=== PATIENT | male | born 1960 | race Caucasian/White ===

== ENCOUNTER 2018-09-17 09:51 | Inpatient (IN) ==
[2018-09-17] MEDS ORDERED: ONDANSETRON INJ 2 MG/ML 2 ML VIAL IV STA (10:40)
[2018-09-17] MEDS ORDERED: SODIUM CHLORIDE 0.9% 1000ML 1,000 ML IV ONE (10:40)
[2018-09-17] MEDS ORDERED: MoRPHine SULFATE 4 MG/ML 1 ML CARP\\VIAL IV STA (10:40)
[2018-09-17 10:46] LABS: White Blood Count 8.58 K/uL (4.8-10.8)
[2018-09-17 10:47] LABS: Hematocrit (blood only) 38.6 % (42-52); Hemoglobin 13.5 g/dL (14.0-18.0); Mean Corpuscular Volume 83.4 fL (80-100); Mean Platelet Volume 9.6 fL (7.4-10.4); Platelet Count 142 K/uL (130-400); RDW Coefficient of Variation 14.5 % (11.5-14.5); RDW Standard Deviation 44.6 fL (36.4-46.3); Red Blood Count 4.63 M/uL (4.7-6.1)
[2018-09-17 10:54] LABS: Calcium 8.8 mg/dl (8.5-10.1); Creatinine Clr Calc Pharmacy 88.6 ml/min; Est GFR (African American) 88.8; Est GFR (Non-African American) 76.7; Potassium 4.2 mmol/L (3.5-5.1)
[2018-09-17 10:57] LABS: Albumin Globulin Ratio 1.3 (0.9-2); Bilirubin,Total 0.6 mg/dl (0.2-1); Globulin 3.1 gm/dl (2.5-4.0); Total Protein 7.1 gm/dl (6.4-8.2)
[2018-09-17 11:13] LABS: Basophils # (auto) 0.01 K/uL (0-0.2); Basophils % (auto) 0.1 %; Eosinophils # (auto) 0.06 K/uL (0-0.5); Eosinophils % (auto) 0.7 %; Immature Granulocytes # (auto) 0.02 K/uL (0.00-0.02); Immature Granulocytes % (auto) 0.2 %; Lymphocytes # (auto) 1.01 K/uL (1.2-3.4); Lymphocytes % (auto) 11.8 %; Monocytes # (auto) 0.61 K/uL (0.11-0.59); Monocytes % (auto) 7.1 %; Neutrophils # (auto) 6.87 K/uL (1.4-6.5); Neutrophils % (auto) 80.1 %
[2018-09-17] MEDS ORDERED: IOVERSOL 100ml IV PRN (11:22)
--- NOTE | 2018-09-17 12:07 | CT Scan Report ---
ABDOMEN AND PELVIS CT WITH IV CONTRAST CT DOSE: 532.06 mGy.cm HISTORY: trauma, rt flank hematoma TECHNIQUE: Multiaxial CT images of the abdomen and pelvis were performed following the use of intrave nous contrast. A dose lowering technique was utilized adhering to the principles of ALARA. COMPARISON STUDY: None. FINDINGS: The lung bases are clear. No pneumoperitoneum. No pneumatosis. Right L2-L4 transverse proce ss fractures. The L3 and L4 fractures are mildly displaced. Moderate to severe degenerative disc dise ase within the lumbar spine. There is a 12 x 5 cm hematoma within the deep subcutaneous fat of the ri ght flank. This measures 13 cm in length. There is also additional superficial subcutaneous hemorrhag e within the right lateral abdominal wall which extends to the subcutaneous lumbosacral region. There is also a small amount of inter and intramuscular hemorrhage/edema within the right lateral abdomina l wall musculature. No definite retroperitoneal hemorrhage identified. A few colonic diverticula. No evidence for diverticulitis. No bowel wall thickening or obstruction. Normal appendix. The liver, gal lbladder, spleen, adrenal glands and pancreas are within normal limits. No hydronephrosis. There are few small bilateral peripelvic renal cysts. A 6 mm hypodense lesion within the left kidney is technic ally too small to characterize but favors a cyst. No retroperitoneal lymphadenopathy. Normal bladder. IMPRESSION: 1. Right L2-L4 transverse process fractures. 2. A 13 x 12 x 5 cm hematoma within the deep subcutaneous fat of the right flank. 3. There is additional superficial subcutaneous hemorrhage within the right lateral abdominal wall wh ich extends to the subcutaneous lumbosacral region as well as a small amount of inter and intramuscul ar hemorrhage/edema within the right lateral abdominal wall musculature. Electronically signed by: Richard De La Rosa M.D. 09/17/2018 12:05 PM
[2018-09-17] MEDS ORDERED: MoRPHine SULFATE 2 MG/ML CARP IV STA (13:12)
--- NOTE | 2018-09-17 14:52 | History & Physical Report ---
Date of Service September 17, 2018 Assessment & Plan (1) Intramuscular hematoma: -Admit to [facility] -Patient presenting from home after suffering a 4 foot fall yesterday onto a piece of swimming pool railing -in the ED, found to have L2-L4 transverse process fracture with significant hematoma of the right flank -Hgb stable at 13.5, will continue to trend -will discuss with orthopedics regarding follow-up -Pain management with scheduled Tylenol and as needed oxycodone for breakthrough pain (2) Lumbar transverse process fracture: -L2-L4 transverse process fracture -Spine orthopedics consult -Pain management as above (3) DVT prophylaxis: -SCDs due to significant hematoma History of Present Illness Chief Complaint: Fall, back pain Primary Care Provider: Nivia Quezada MD 58-year-old male who presents the ED with back pain after he suffered a fall yesterday. Patient reports he was working on a deck around his pool, when he slipped and fell backwards falling onto a metal railing. He reports his fall was about 4 feet. Patient denies striking his head or having loss of consciousness. Patient reports that he was initially able to get up and walk, however pain has been progressively getting worse to the point where he had a called EMS this morning. Bruising in the right flank area has been progressively worsening as well. He denies numbness and tingling to lower extremities. Denies any loss of bowel or bladder function. Reports he otherwise been feeling well recently. No chest pain or shortness of breath. He denies lightheadedness, dizziness, diaphoresis, syncopal events. No abdominal pain, nausea, vomiting, diarrhea. He denies any urinary symptoms. In the ED, CT ABD/pelvis is showing right L2-L4 transverse process fractures and a 13 x 12 x 5 cm hematoma within the deep subcutaneous fat of the right flank. Hgb 13.5. Patient has remained hemodynamically stable. He was given IVF, IV Zofran, IV morphine x2 doses. Allergies Allergy/AdvReac Type Severity Reaction Status Date / Time No Known Allergies Allergy Unverified 09/17/18 10:45 Home Medications Home Medications Medication Instructions Recorded Confirmed Type No Known Home Medications 09/17/18 09/17/18 History Past Med/Surg History Medical History No pertinent past medical history (Chronic) No significant past surgical history (Chronic) Family History Sister Chelsea chorea Social History marital status: Single Current Living Situation: Alone current occupational status: employed Feels Safe at Home: Yes Smoking Status: Former smoker Hx Alcohol Use: Yes Alcohol type: beer Review of Systems Review of Systems: ROS per HPI, all other systems reviewed and negative Physical Exam Constitutional: WD/WN, vitals as above Eyes: PERRL, conjunctivae normal, anicteric sclerae ENMT: external ear and nose normal, oropharynx normal Respiratory: normal respiratory effort, lungs clear to auscultation Cardiovascular: Rate/Rhythm: regular rate and regular rhythm Vessels: normal peripheral pulses Extremities: no edema Gastrointestinal (Abdomen): normal bowel sounds, soft, nontender, no hepatosplenomegaly Musculoskeletal: no cyanosis or clubbing, extremities motor strength 5/5 Extensive ecchymosis noted over right flank, edematous/firm to touch Skin: no rashes, warm and dry Neurologic: PERRL, EOMI, accommodation nl, no face palsy, no dysarthria Psychiatric: A+Ox3, euthymic affect Results & Data Vital Signs (Past 12 Hours) Vital Signs Temp Pulse Pulse Resp BP BP Pulse Ox 09/17/18 14:34 94 H 16 140/94 98 09/17/18 13:03 95 H 16 179/85 H 100 09/17/18 11:43 76 16 154/99 H 98 09/17/18 09:58 36.5 C 92 H 16 126/72 97 Laboratory Results Laboratory Last Values WBC 8.58 K/uL (4.8-10.8) 09/17/18 09:54 RBC 4.63 M/uL (4.7-6.1) L 09/17/18 09:54 Hgb 13.5 g/dL (14.0-18.0) L 09/17/18 09:54 Hct 38.6 % (42-52) L 09/17/18 09:54 MCV 83.4 fL (80-100) 09/17/18 09:54 MCH 29.2 pg (25-34) 09/17/18 09:54 MCHC 35.0 g/dL (32-36) 09/17/18 09:54 RDW Std Deviation 44.6 fL (36.4-46.3) 09/17/18 09:54 RDW Coeff of Netta 14.5 % (11.5-14.5) 09/17/18 09:54 Plt Count 142 K/uL (130-400) 09/17/18 09:54 MPV 9.6 fL (7.4-10.4) 09/17/18 09:54 Immature Gran % (Auto) 0.2 % 09/17/18 09:54 Neut % (Auto) 80.1 % 09/17/18 09:54 Lymph % (Auto) 11.8 % 09/17/18 09:54 [place] % (Auto) 7.1 % 09/17/18 09:54 Eos % (Auto) 0.7 % 09/17/18 09:54 Baso % (Auto) 0.1 % 09/17/18 09:54 Immature Gran # (Auto) 0.02 K/uL (0.00-0.02) 09/17/18 09:54 Neut # (Auto) 6.87 K/uL (1.4-6.5) H 09/17/18 09:54 Lymph # (Auto) 1.01 K/uL (1.2-3.4) L 09/17/18 09:54 [place] # (Auto) 0.61 K/uL (0.11-0.59) H 09/17/18 09:54 Eos # (Auto) 0.06 K/uL (0-0.5) 09/17/18 09:54 Baso # (Auto) 0.01 K/uL (0-0.2) 09/17/18 09:54 Sodium 138 mmol/L (136-145) 09/17/18 09:54 Potassium 4.2 mmol/L (3.5-5.1) 09/17/18 09:54 Chloride 105 mmol/L (98-107) 09/17/18 09:54 Carbon Dioxide 29 mmol/L (21-32) 09/17/18 09:54 4.0 (3-11) 09/17/18 09:54 BUN 14 mg/dl (7-18) 09/17/18 09:54 1.07 mg/dl (0.6-1.4) 09/17/18 09:54 Est Cr Clr Drug Dosing 88.6 ml/min 09/17/18 09:54 Est GFR ( Amer) 88.8 09/17/18 09:54 Est GFR (Non-Af Amer) 76.7 09/17/18 09:54 13.0 (10-20) 09/17/18 09:54 Glucose 120 mg/dl (70-99) H 09/17/18 09:54 Calcium 8.8 mg/dl (8.5-10.1) 09/17/18 09:54 0.6 mg/dl (0.2-1) 09/17/18 09:54 AST 18 U/L (15-37) 09/17/18 09:54 ALT 40 U/L (12-78) 09/17/18 09:54 61 U/L (45-117) 09/17/18 09:54 7.1 gm/dl (6.4-8.2) 09/17/18 09:54 4.0 gm/dl (3.4-5.0) 09/17/18 09:54 3.1 gm/dl (2.5-4.0) 09/17/18 09:54 1.3 (0.9-2) 09/17/18 09:54 120 U/L (73-393) 09/17/18 09:[address] ABD/PELVIS IMPRESSION: 1. Right L2-L4 transverse process fractures. 2. A 13 x 12 x 5 cm hematoma within the deep subcutaneous fat of the right flank. 3. There is additional superficial subcutaneous hemorrhage within the right lateral abdominal wall which extends to the subcutaneous lumbosacral region as well as a small amount of inter and intramuscular hemorrhage/edema within the right lateral abdominal wall musculature. Code Status & VTE Plan VTE Prophylaxis Plan VTE Prophylaxis will be ordered: Yes Supervising Physician Co-Signing Physician Notes Patient is a 58-year-old male with no significant past medical history presents with back/right flank pain, ambulatory dysfunction after having a mechanical fall yesterday. Patient denies any loss of consciousness, head trauma. He also denies any numbness, tingling in his feet, weakness, bowel or bladder inco ntinence. Patient has significant pain with ambulation, movement. Pain decreases with rest-2/10 at rest and 4-5/10 with activity. Please review HPI for complete details of presentation. CT abdomen showed right L2- L4 transverse process fractures, large hematoma within the deep subcutaneous fat of the right flank, superficial subcutaneous hemorrhages within the right lateral abdominal wall. On exam patient is well-built and nourished, no apparent distress, normocephalic atraumatic, lungs are clear to auscultation, S1-S2, no murmur, large ecchymosis noted on the right flank region, tender, decreased ROM of lumbar region secondary to pain. No pedal edema. Patient is admitted for monitoring of intramuscular hematoma, dysfunction plan for management for lumbar transverse process fracture. Orthopedics is consulted. Will get PT OT in the morning once recommendations noted from orthopedics. Monitor H&H. May need repeat imaging to monitor the progression of the hematoma. Will likely need to back brace for ambulation. Will control pain with medications. Fall precautions. Will discuss with Ortho if hematoma/Transverse fractures needs any surgical intervention. I personally reviewed the record. Patient is interviewed and examined at bedside. Patient's care is coordinated with Cecy Schrader [employer] CLE[employer] SUPERVISOR. Please refer to the documentation above for details of patient's presentation and for discussion of other issues.
[2018-09-17] MEDS: ACETAMINOPHEN 325 MG TAB PO SCH ×2 (16:22→21:39)
[2018-09-17] MEDS: OXYCODONE HCL IR 5 MG TAB (IMMEDIATE RELEASE) PO PRN ×2 (16:23→20:37)
[2018-09-17] MEDS: DOCUSATE SODIUM 100 MG CAP PO SCH (20:37)
[2018-09-17 20:53] LABS: Appearance Urine Clear (Clear); Bilirubin Urine Negative (Negative); Blood Urine Negative (Negative); Color Urine Yellow; Glucose Urine UA Negative (Negative); Ketones Urine Negative (Negative); Leukocyte Esterase Urine Negative (Negative); Nitrite Urine Negative (Negative); Protein Urine Negative (Negative); Specific Gravity Urine > 1.045 (1.000-1.030); Urobilinogen Urine Negative (Negative)
[2018-09-17 21:37] LABS: Hematocrit (blood only) 33.7 % (42-52); Hemoglobin 11.4 g/dL (14.0-18.0)
[2018-09-18] MEDS: ACETAMINOPHEN 325 MG TAB PO SCH ×4 (04:10→21:10)
[2018-09-18 06:31] LABS: Hematocrit (blood only) 31.2 % (42-52); Hemoglobin 10.5 g/dL (14.0-18.0); Mean Corpuscular Hgb Conc 33.7 g/dL (32-36); Mean Platelet Volume 9.3 fL (7.4-10.4); Platelet Count 111 K/uL (130-400); RDW Coefficient of Variation 14.8 % (11.5-14.5); Red Blood Count 3.67 M/uL (4.7-6.1); White Blood Count 4.83 K/uL (4.8-10.8)
[2018-09-18 07:02] LABS: BUN Creatinine Ratio 12.1 (10-20); Calcium 8.2 mg/dl (8.5-10.1); Creatinine Clr Calc Pharmacy 89.4 ml/min; Est GFR (African American) 89.9; Est GFR (Non-African American) 77.5; Potassium 4.2 mmol/L (3.5-5.1)
[2018-09-18] MEDS: OXYCODONE HCL IR 5 MG TAB (IMMEDIATE RELEASE) PO PRN ×3 (07:28→19:41)
[2018-09-18] MEDS: DOCUSATE SODIUM 100 MG CAP PO SCH ×2 (07:30→21:10)
--- NOTE | 2018-09-18 08:54 | Orthopedic Consultation ---
Date of Consultation September 18, 2018 Assessment & Plan (1) Lumbar transverse process fracture: At this time we could consider a brace however in light of his ecchymosis and flank pain it would be probably be more inhibiting than helpful. I recommend regular light activity not lift more than 5 pounds see us in the next 2 weeks to update x-rays review of status. I did mention he will be out of work for a minimum of 6 weeks while he is healing his transverse process fractures. Present on Admission?: Yes History of Present Illness Reason for Consultation: Back pain Attending Physician: Roman Spangler MD History of Present Illness This is a 58-year-old male that fell while working on his pool. He landed on his right flank. He noticed a marked onset of ecchymosis and pain. Was seen in emergency room and admitted for pain control. This morning he states his symptoms have improved. He is able to immobilize somewhat better today. He has no numbness tingling or pain in lower extremities. 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 Is marked ecchymosis to the right flank. Results & Data Vital Signs (Past 12 Hours) Vital Signs Temp Pulse Resp BP BP Pulse Ox 09/18/18 07:42 36.3 C L 61 16 132/80 97 05/15/19 23:01 36.4 C L 66 16 144/70 H 97 (1) Lumbar transverse process fracture Encounter type: initial encounter Fracture type: closed Qualified Code(s): S32.009A - Unspecified fracture of unspecified lumbar vertebra, initial encounter for closed fracture
[2018-09-18] MEDS ORDERED: HYDROmorphone INJ 0.5 MG/0.5 ML SYR IV STA (14:23)
--- NOTE | 2018-09-18 17:21 | Hospitalist Progress Note ---
Date of Service September 18, 2018 Assessment & Plan (1) Intramuscular hematoma: -Patient presenting from home after suffering a 4 foot fall onto a piece of swimming pool railing -in the ED, found to have L2-L4 transverse process fracture with significant hematoma of the right flank -Hgb was 13.5 and downtrending to 10.5, will continue to trend with repeat CBC by 09/19/18 (2) Lumbar transverse process fracture: -L2-L4 transverse process fracture -Spine orthopedics consult does not recommend surgical interventions -orthopedics recommend regular light activity, not lift more than 5 pounds, and outpatient in the next 2 weeks to update x-rays review of status -likely patient will not be able to return to work activities for a minimum of 6 weeks while he is healing his transverse process fractures. -PT/OT evaluations while inpatient -pain management: have increased oxycodone dose from 5 mg to 10 mg. patient received additional dilaudid on 09/18/18 (3) DVT prophylaxis: -SCDs Subjective Patient able to ambulate but seen walking gingerly and needing time to transition from standing to sitting position. Patient needing IV dilaudid earlier today and increased oral oxycodone for pain. patient denies lightheadedness. no dizziness. no vomiting. Pain is primarily o the back and right flank. no chest pain. no shortness of breath. Physical Exam Constitutional: well developed Eyes: PERRL, conjunctivae normal, anicteric sclerae EOM intact bilaterally ENMT: external ear and nose normal, oropharynx normal Neck: trachea midline, no thyromegaly normal visual inspection Respiratory: normal respiratory effort, lungs clear to auscultation Cardiovascular: RRR, no murmur, no edema Gastrointestinal (Abdomen): normal bowel sounds, soft, nontender, no hepatosplenomegaly Musculoskeletal: right flank bruising Neurologic: PERRL, EOMI, accommodation nl, no face palsy, no dysarthria CN's II-XI intact bilaterally Psychiatric: A+Ox3, euthymic affect Results & Data Vital Signs (Past 12 Hours) Vital Signs Temp Pulse Resp BP Pulse Ox 09/18/18 14:57 36.6 C 77 18 163/78 H 97 09/18/18 07:42 36.3 C L 61 16 132/80 97
[2018-09-19] MEDS: ACETAMINOPHEN 325 MG TAB PO SCH ×2 (03:39→10:31)
[2018-09-19] MEDS: OXYCODONE HCL IR 5 MG TAB (IMMEDIATE RELEASE) PO PRN ×2 (03:39→10:33)
[2018-09-19 06:30] LABS: Basophils # (auto) 0.01 K/uL (0-0.2); Basophils % (auto) 0.2 %; Eosinophils # (auto) 0.16 K/uL (0-0.5); Eosinophils % (auto) 3.7 %; Hemoglobin 10.1 g/dL (14.0-18.0); Immature Granulocytes # (auto) 0.01 K/uL (0.00-0.02); Immature Granulocytes % (auto) 0.2 %; Lymphocytes # (auto) 1.03 K/uL (1.2-3.4); Mean Corpuscular Hgb Conc 33.7 g/dL (32-36); Mean Corpuscular Volume 86.2 fL (80-100); Mean Platelet Volume 9.1 fL (7.4-10.4); Monocytes # (auto) 0.36 K/uL (0.11-0.59); Monocytes % (auto) 8.4 %; Neutrophils # (auto) 2.73 K/uL (1.4-6.5); Neutrophils % (auto) 63.5 %; Platelet Count 102 K/uL (130-400); RDW Coefficient of Variation 14.7 % (11.5-14.5); RDW Standard Deviation 46.1 fL (36.4-46.3); Red Blood Count 3.48 M/uL (4.7-6.1)
[2018-09-19] MEDS: DOCUSATE SODIUM 100 MG CAP PO SCH (08:53)
[2018-09-19] MEDS ORDERED: CYCLOBENZAPRINE HCL 5 MG TAB PO SCH (09:15)
--- NOTE | 2018-09-19 09:27 | Hospitalist Progress Note ---
Date of Service September 19, 2018 Assessment & Plan (1) Intramuscular hematoma: -Patient presenting from home after suffering a 4 foot fall onto a piece of swimming pool railing -in the ED, found to have L2-L4 transverse process fracture with significant hematoma of the right flank -Hgb was 13.5 and downtrending to 10.5 by 09/18/18 -Hgb relatively stable 10.1 by 09/19/18 (2) Lumbar transverse process fracture: closed fracture of Lumbar transverse process (L2 to L4) secondary to fall -L2-L4 transverse process fracture -Spine orthopedics consult does not recommend surgical interventions -orthopedics recommend regular light activity, not lift more than 5 pounds, and outpatient in the next 2 weeks to update x-rays review of status -[facility] was checked and patient does not have any active controlled medications prior to this hospital admission in the last year Patient may take cyclobenzaprine 5 mg twice a day for muscle spasms Patient can take acetaminophen 325 mg every 4 hours as needed for 5 days for mild pain Patient can take oxycodone 10 mg every 6 hours as needed for 4 days for moderate pain Patient should avoid driving if recently taking oxycodone at home Patient should take docusate daily if on oxycodone to avoid constipation 09/23/2018 11:00 AM Provider Nivia Quezada MD Department Internal Medicine [facility] -regular light activity not lift more than 5 pounds -Patient should schedule appointment to see Dr. Curran or his colleagues in 2 weeks for repeat X rays and follow up [facility] [address], [place] [id number] -As per orthopedics, Dr. Curran, patient is advised to be off work activities for a minimum of 6 weeks while he is healing his transverse process fractures. (3) DVT prophylaxis: -SCDs and ambulation while inpatient Discharge Instructions closed fracture of Lumbar transverse process (L2 to L4) secondary to fall, Intramuscular Hematoma Subjective Patient doing well. ambulating slowly and tolerating back discomfort. patient denies chest pain. no shortness of breath. no vomiting. no abdomen pain. no dizziness. no lightheadedness. we discuss discharge plans at length Physical Exam Constitutional: well developed Eyes: PERRL, conjunctivae normal, anicteric sclerae EOM intact bilaterally ENMT: external ear and nose normal, oropharynx normal Neck: trachea midline, no thyromegaly normal visual inspection Respiratory: normal respiratory effort, lungs clear to auscultation Cardiovascular: RRR, no murmur, no edema Gastrointestinal (Abdomen): normal bowel sounds, soft, nontender, no hepatosplenomegaly Musculoskeletal: no cyanosis or clubbing, extremities motor strength 5/5 Head/Neck/Chest: normocephalic and head atraumatic Neurologic: PERRL, EOMI, accommodation nl, no face palsy, no dysarthria CN's II-XI intact bilaterally Psychiatric: A+Ox3, euthymic affect Results & Data Vital Signs (Past 12 Hours) Vital Signs Temp Pulse Pulse Resp BP BP Pulse Ox 09/19/18 07:42 36.5 C 65 12 132/82 97 09/18/18 23:08 36.6 C 86 16 120/72 96
--- NOTE | 2018-09-19 09:36 | Discharge Summary ---
Date of Service September 19, 2018 Admission HPI Per Admitting Provider 58-year-old male who presents the ED with back pain after he suffered a fall yesterday. Patient reports he was working on a deck around his pool, when he slipped and fell backwards falling onto a metal railing. He reports his fall was about 4 feet. Patient denies striking his head or having loss of consciousness. Patient reports that he was initially able to get up and walk, however pain has been progressively getting worse to the point where he had a called EMS this morning. Bruising in the right flank area has been progressively worsening as well. He denies numbness and tingling to lower extremities. Denies any loss of bowel or bladder function. Reports he otherwise been feeling well recently. No chest pain or shortness of breath. He denies lightheadedness, dizziness, diaphoresis, syncopal events. No abdominal pain, nausea, vomiting, diarrhea. He denies any urinary symptoms. In the ED, CT ABD/pelvis is showing right L2-L4 transverse process fractures and a 13 x 12 x 5 cm hematoma within the deep subcutaneous fat of the right flank. Hgb 13.5. Patient has remained hemodynamically stable. He was given IVF, IV Zofran, IV morphine x2 doses. Admission Exam Per Admitting Provider Constitutional: WD/WN, vitals as above Eyes: PERRL, conjunctivae normal, anicteric sclerae ENMT: external ear and nose normal, oropharynx normal Respiratory: normal respiratory effort, lungs clear to auscultation Cardiovascular: Rate/Rhythm: regular rate and regular rhythm Vessels: normal peripheral pulses Extremities: no edema Gastrointestinal (Abdomen): normal bowel sounds, soft, nontender, no hepatosplenomegaly Musculoskeletal: no cyanosis or clubbing, extremities motor strength 5/5 Extensive ecchymosis noted over right flank, edematous/firm to touch Skin: no rashes, warm and dry Neurologic: PERRL, EOMI, accommodation nl, no face palsy, no dysarthria Psychiatric: A+Ox3, euthymic affect Principal Diagnosis closed fracture of Lumbar transverse process (L2 to L4) secondary to fall, Intramuscular Hematoma Discharge Exam Constitutional well developed Eyes PERRL, conjunctivae normal, anicteric sclerae EOM intact bilaterally ENMT external ear and nose normal, oropharynx normal Neck trachea midline, no thyromegaly normal visual inspection Respiratory normal respiratory effort, lungs clear to auscultation Cardiovascular RRR, no murmur, no edema Gastrointestinal (Abdomen) normal bowel sounds, soft, nontender, no hepatosplenomegaly Musculoskeletal no cyanosis or clubbing, extremities motor strength 5/5 Head/Neck/Chest: normocephalic and head atraumatic right flank bruising Neurologic PERRL, EOMI, accommodation nl, no face palsy, no dysarthria CN's II-XI intact bilaterally Psychiatric A+Ox3, euthymic affect Discharge Data Allergies Allergy/AdvReac Type Severity Reaction Status Date / Time No Known Allergies Allergy Unverified 09/17/18 10:45 Consultations 09/17/18 13:11 ED Decision to Admit Stat 09/17/18 15:47 Consult Orthopedic Surgery Routine Ordered Studies 09/17/18 10:39 CT abd pelvis IV con only Stat Hospital Course (1) Intramuscular hematoma: -Patient presenting from home after suffering a 4 foot fall onto a piece of swimming pool railing -in the ED, found to have L2-L4 transverse process fracture with significant hematoma of the right flank -Hgb was 13.5 and downtrending to 10.5 by 09/18/18 -Hgb relatively stable 10.1 by 09/19/18 (2) Lumbar transverse process fracture: closed fracture of Lumbar transverse process (L2 to L4) secondary to fall -L2-L4 transverse process fracture -Spine orthopedics consult does not recommend surgical interventions -orthopedics recommend regular light activity, not lift more than 5 pounds, and outpatient in the next 2 weeks to update x-rays review of status -[facility] was checked and patient does not have any active controlled medications prior to this hospital admission in the last year Patient may take cyclobenzaprine 5 mg twice a day for muscle spasms Patient can take acetaminophen 325 mg every 4 hours as needed for 5 days for mild pain Patient can take oxycodone 10 mg every 6 hours as needed for 4 days for moderate pain Patient should avoid driving if recently taking oxycodone at home Patient should take docusate daily if on oxycodone to avoid constipation 09/23/2018 11:00 AM Provider Nivia Quezada MD Department Internal Medicine [facility] -regular light activity not lift more than 5 pounds -Patient should schedule appointment to see Dr. Curran or his colleagues in 2 weeks for repeat X rays and follow up [address] [address] -As per orthopedics, Dr. Curran, patient is advised to be off work activities for a minimum of 6 weeks while he is healing his transverse process fractures. (3) DVT prophylaxis: -SCDs and ambulation while inpatient Discharge Instructions closed fracture of Lumbar transverse process (L2 to L4) secondary to fall, Intramuscular Hematoma Total Time Total Time Spent Total Time Spent (In Minutes): 40 minutes Total Time Includes: Examination of the Patient, Discharge Planning, Medication Reconciliation and Communication With Other Providers Discharge Plan Discharge Items Patient Disposition: Home - Self-Care Reason For Visit: L2-L4 TRANSVERSE PROCESS FX,HEMATOMA Discharge Diagnosis: closed fracture of Lumbar transverse process (L2 to L4) secondary to fall, Intramuscular Hematoma Condition: Good Discharge Goals: Improve function Activity: Per 'Additional Instructions' section Non-emergency contact: Primary Care Provider and Surgeon Call non-emergency contact if: you have any medication questions Follow-up/Referrals: Nivia Umanzor MD [Primary Care Provider] - Diet: Regular Addtl [facility] does not have any active controlled medications prior to this hospital admission in the last year Patient may take cyclobenzaprine 5 mg twice a day for muscle spasms Patient can take acetaminophen 325 mg every 4 hours as needed for 5 days for mild pain Patient can take oxycodone 10 mg every 6 hours as needed for 4 days for moderate pain Patient should avoid driving if recently taking oxycodone at home Patient should take docusate daily if on oxycodone to avoid constipation 09/23/2018 11:00 AM Provider Nivia Queazda MD Department Internal Medicine [facility] regular light activity not lift more than 5 pounds Patient should schedule appointment to see Dr. Curran or his colleagues in 2 weeks for repeat X rays and follow up [address] [address] As per orthopedics, Dr. Curran, patient is advised to be off work activities for a minimum of 6 weeks while he is healing his transverse process fractures. Prescriptions: New docusate sodium 100 mg Capsule 100 mg PO BID 10 Days Qty: 20 RF: 0 acetaminophen [Mapap (acetaminophen)] 325 mg Tablet 325 mg PO Q4H 5 Days Qty: 30 RF: 0 cyclobenzaprine 5 mg Tablet 5 mg PO BID 5 Days Qty: 10 RF: 0 oxycodone 10 mg tablet 10 mg PO Q6H PRN (Reason: moderate pain) 4 Days Qty: 16 RF: 0 Stand-Alone Forms: [facility] Discharge Orders: Discharge Order (Routine); Ordered 09/19/18 Ordered By: Roman Spangler Admission Data Admit Date/Time: 09/17/18 13:54 Attending Provider: Roman Spangler Admit Provider: Gregory Serrano Primary Care Provider: Nivia Umanzor Other Providers: Gregory Serrano ; Jeffrey Curran Service: Surgical Services
--- NOTE | 2018-09-19 14:27 | Emergency Department Note ---
Entered by April Negro acting as a scribe for History of Present Illness General Chief complaint: Hip Pain Time Seen by Provider: 09/17/18 10:30 Source: patient History of Present Illness Onset (ago): day(s) (1) Location: hip (right) Pain Consistency: + other (episode) Maximum Pain Intensity: 8 Quality: + other ("hot") Exacerbated By: + movement (standing) and + other (palpation) Associated symptoms: + denies other symptoms (head trauma, dental or facial pain, chest pain, pain with breathing, shortness of breath, abdominal pain, urinary changes, bowel movement changes, dark urine, hematuria, or numbness or weakness in his legs) and + other (unable to walk secondary to pain, swelling) The patient is a 58 year old male that is presenting to the Emergency Room with complaints of an episode of right lateral flank pain after a fall yesterday afternoon. The patient reports that he was working on a deck when he slipped and fell down 4 feet, hitting his right flank on a the railing of an above ground pool. He states that the pain was not very severe following the incident but that it progressively worsened. He notes that last night around 2300 the area started feeling hot and swollen. He states that a large bruise started to develop at this time and that the area became painful to the touch. The patient reports that he is unable to walk secondary to the pain. He describes the pain as hot. He denies hitting anything else during his fall. He denies any head trauma, dental or facial pain, chest pain, pain with breathing, shortness of breath, abdominal pain, urinary changes, bowel movement changes, dark urine, hematuria, or numbness or weakness in his legs. He denies any significant medical problems or allergies. He states that he does not take any medications regularly. He notes that he came to the Emergency Room via EMS because he was unable to walk. Home Medications Home Medications Medication Instructions Recorded Confirmed Type acetaminophen [Mapap 325 mg PO Q4H 5 Days #30 tab 09/19/18 Rx (acetaminophen)] cyclobenzaprine 5 mg PO BID 5 Days #10 tab 09/19/18 Rx docusate sodium 100 mg PO BID 10 Days #20 cap 09/19/18 Rx oxycodone 10 mg PO Q6H PRN 4 Days #16 tab 09/19/18 Rx Allergies Allergy/AdvReac Type Severity Reaction Status Date / Time No Known Allergies Allergy Unverified 09/17/18 10:45 Past Med/Surg History Medical History No pertinent past medical history (Chronic) No significant past surgical history (Chronic) Family History Sister Phuong chorea Social History Preferred Language: Slovenian Communication Ability: Effective Patient Access Director Required: No Beliefs That Will Affect Care: None marital status: Single Current Living Situation: Alone current occupational status: employed Other Information That Helps Us Care for You: No Feels Safe at Home: Yes Safety Concerns: Feels Safe At This Time Smoking Status: Former smoker Hx Alcohol Use: Yes Alcohol type: beer Hx Substance Use: No Review of Systems See HPI for pertinent positives & negatives. and A total of 10 systems reviewed and were otherwise negative Physical Exam Vital Signs Vital Signs - 24 hr 09/17/18 09:58 09/17/18 11:43 09/17/18 13:03 Temperature 97.7 F Temperature Source Oral Sepsis Recent Fever Within 48 Hours No Sepsis New/Unexplained Change in Mental Status No Sepsis Action Taken by Nursing No Action Required Pulse Rate 92 H Pulse Rate [Left Finger] 76 95 H Respiratory Rate 16 16 16 Blood Pressure 126/72 Blood Pressure [Left Arm] 154/99 H 179/85 H Blood Pressure Mean 90 Blood Pressure Mean [Left Arm] 117 116 Pulse Oximetry 97 98 100 Oxygen Delivery Method Room Air Room Air Room Air 09/17/18 14:34 Temperature Temperature Source Sepsis Recent Fever Within 48 Hours Sepsis New/Unexplained Change in Mental Status Sepsis Action Taken by Nursing Pulse Rate Pulse Rate [Left Finger] 94 H Respiratory Rate 16 Blood Pressure Blood Pressure [Left Arm] 140/94 Blood Pressure Mean Blood Pressure Mean [Left Arm] 109 Pulse Oximetry 98 Oxygen Delivery Method Room Air General: Uncomfortable appearing middle-aged male with a large bruise along his right lateral flank. HEENT: Normal cephalic atraumatic. Pupils are equal round and reactive to light. Extraocular movements are intact. Oropharynx is pink with moist mucous membranes. No swelling of the mouth lips or tongue. Neck: Supple with a midline trachea. No meningeal signs or stiffness, no JVD or bruits. No Stridor. Chest: Clear to auscultation bilaterally. No wheezes or rhonchi. No increased work of breathing. Heart: regular rate and rhythm. Abdomen: Soft nontender, nondistended without rebound guarding or rigidity. Extremities: No cyanosis clubbing or edema. No calf tenderness or asymmetry Spine/Back. Non tender to palpation. No CVA tenderness Skin: Good turgor without rashes. Neurologic exam: Cranial nerves two through 12 are intact. Motor and sensation are intact and symmetrical throughout. Course 1035:The patient was evaluated in room A11B. A complete history and physical examination was performed. 1300: I updated the patient on his lab and imaging results. The patient expressed a desire to be discharged home but agreed to be evaluated further after he was unable to stand. 1309: I discussed the patient's case with CESAR Kingston, who will evaluate the patient for further management and care with Dr. Serrano as the admitting physician. 1315: Upon reevaluation, the patient is resting comfortably. I discussed laboratory and radiographic results with the patient. He verbalized agreement of the treatment plan. The patient will be evaluated for further management and care. Consultations Consultation #1: I discussed the patient's case with CESAR Kingston, who will evaluate the patient for further management and care with Dr. Serrano as the admitting physician. Time: 13:09 Administered Medications Discontinued Medications Acetaminophen (Tylenol) 650 mg PO Q6H JARED Stop: 10/17/18 15:46 Last Admin: 09/19/18 10:31 Dose: Not Given Documented by: [id number] Admin: 09/19/18 03:39 Dose: 650 mg Documented by: [id number] Admin: 09/18/18 21:10 Dose: 650 mg Documented by: [id number] Admin: 09/18/18 16:40 Dose: 650 mg Documented by: [id number] Admin: 09/18/18 09:46 Dose: 650 mg Documented by: [id number] Admin: 09/18/18 04:10 Dose: 650 mg Documented by: [id number] Admin: 09/17/18 21:39 Dose: 650 mg Documented by: [id number] Admin: 09/17/18 16:22 Dose: 650 mg Documented by: [id number] Cyclobenzaprine HCl (Flexeril) 5 mg PO BID JARED Stop: 10/19/18 09:14 Last Admin: 09/19/18 10:33 Dose: 5 mg Documented by: [id number] Docusate Sodium (Colace) 100 mg PO BID JARED Stop: 10/17/18 20:59 Last Admin: 09/19/18 08:53 Dose: 100 mg Documented by: [id number] Admin: 09/18/18 21:10 Dose: 100 mg Documented by: [id number] Admin: 09/18/18 07:30 Dose: Not Given Documented by: [id number] Admin: 09/17/18 20:37 Dose: Not Given Documented by: [id number] Hydromorphone HCl (Dilaudid) 0.5 mg IV NOW STA Stop: 09/18/18 14:24 Last Admin: 09/18/18 14:31 Dose: 0.5 mg Documented by: [id number] Sodium Chloride (Nss 1000ml) 1,000 mls @ 999 mls/hr IV .Q1H1M ONE Stop: 09/17/18 11:40 Last Infusion: 09/17/18 12:15 Dose: 0 mls/hr Documented by: [id number] Admin: 09/17/18 11:11 Dose: 999 mls/hr Documented by: [id number] Ioversol (Optiray 320 100ml) 93 ml IV ONCE PRN PRN Reason: Interaction Checking Stop: 09/21/18 11:21 Last Admin: 09/17/18 11:24 Dose: 93 ml Documented by: [id number] Morphine Sulfate (Morphine Sulfate) 4 mg IV NOW STA Stop: 09/17/18 10:41 Last Admin: 09/17/18 11:11 Dose: 4 mg Documented by: [id number] Morphine Sulfate (Morphine Sulfate) 2 mg IV NOW STA Stop: 09/17/18 13:13 Last Admin: 09/17/18 14:39 Dose: 2 mg Documented by: [id number] Ondansetron HCl (Zofran) 4 mg IV NOW STA Stop: 09/17/18 10:41 Last Admin: 09/17/18 11:11 Dose: 4 mg Documented by: [id number] Oxycodone HCl (Roxicodone Immediate Rel) 5 mg PO Q4H PRN PRN Reason: Pain Stop: 10/01/18 15:46 Last Admin: 09/18/18 11:36 Dose: 5 mg Documented by: [id number] Admin: 09/18/18 07:28 Dose: 5 mg Documented by: [id number] Admin: 09/17/18 20:37 Dose: 5 mg Documented by: [id number] Admin: 09/17/18 16:23 Dose: 5 mg Documented by: [id number] Oxycodone HCl (Roxicodone Immediate Rel) 10 mg PO Q6H PRN PRN Reason: Pain Stop: 10/02/18 14:21 Last Admin: 09/19/18 10:33 Dose: 10 mg Documented by: [id number] Admin: 09/19/18 03:39 Dose: 10 mg Documented by: [id number] Admin: 09/18/18 19:41 Dose: 10 mg Documented by: [id number] Medical Decision Making Differential Diagnosis Differential diagnosis includes: Etiologies such as hematoma, fracture, internal injuries, anemia, electrolyte or metabolic abnormalities as well as others were entertained. Medical Records Attestation: I reviewed the patient's medical records. Home Medications Current Medication List: was personally reviewed by me Laboratory Data Attestation: I reviewed the patient's lab results. Result diagrams: 09/19/18 06:19 09/18/18 06:14 Lab Results 09/17/18 09/17/18 Range/Units 09:54 09:54 WBC 8.58 (4.8-10.8) K/uL RBC 4.63 L (4.7-6.1) M/uL Hgb 13.5 L (14.0-18.0) g/dL Hct 38.6 L (42-52) % MCV 83.4 (80-100) fL MCH 29.2 (25-34) pg MCHC 35.0 (32-36) g/dL RDW Std Deviation 44.6 (36.4-46.3) fL RDW Coeff of Netta 14.5 (11.5-14.5) % Plt Count 142 (130-400) K/uL MPV 9.6 (7.4-10.4) fL Immature Gran % (Auto) 0.2 % Neut % (Auto) 80.1 % Lymph % (Auto) 11.8 % Ada % (Auto) 7.1 % Eos % (Auto) 0.7 % Baso % (Auto) 0.1 % Immature Gran # (Auto) 0.02 (0.00-0.02) K/uL Neut # (Auto) 6.87 H (1.4-6.5) K/uL Lymph # (Auto) 1.01 L (1.2-3.4) K/uL Ada # (Auto) 0.61 H (0.11-0.59) K/uL Eos # (Auto) 0.06 (0-0.5) K/uL Baso # (Auto) 0.01 (0-0.2) K/uL Sodium 138 (136-145) mmol/L Potassium 4.2 (3.5-5.1) mmol/L Chloride 105 (98-107) mmol/L Carbon Dioxide 29 (21-32) mmol/L Anion Gap 4.0 (3-11) BUN 14 (7-18) mg/dl Creatinine 1.07 (0.6-1.4) mg/dl Est Cr Clr Drug Dosing 88.6 ml/min Est GFR ( Amer) 88.8 Est GFR (Non-Af Amer) 76.7 BUN/Creatinine Ratio 13.0 (10-20) Glucose 120 H (70-99) mg/dl Calcium 8.8 (8.5-10.1) mg/dl Total Bilirubin 0.6 (0.2-1) mg/dl AST 18 (15-37) U/L ALT 40 (12-78) U/L Alkaline Phosphatase 61 (45-117) U/L Total Protein 7.1 (6.4-8.2) gm/dl Albumin 4.0 (3.4-5.0) gm/dl Globulin 3.1 (2.5-4.0) gm/dl Albumin/Globulin Ratio 1.3 (0.9-2) Lipase 120 (73-393) U/L Imaging Data Radiologist's Impression: Radiology results as stated below per my review and the radiologist's interpretation: ABDOMEN AND PELVIS CT WITH IV CONTRAST CT DOSE: 532.06 mGy.cm HISTORY: trauma, rt flank hematoma TECHNIQUE: Multiaxial CT images of the abdomen and pelvis were performed following the use of intravenous contrast. A dose lowering technique was utilized adhering to the principles of ALARA. COMPARISON STUDY: None. FINDINGS: The lung bases are clear. No pneumoperitoneum. No pneumatosis. Right L2-L4 transverse process fractures. The L3 and L4 fractures are mildly displaced. Moderate to severe degenerative disc disease within the lumbar spine. There is a 12 x 5 cm hematoma within the deep subcutaneous fat of the right flank. This measures 13 cm in length. There is also additional superficial subcutaneous hemorrhage within the right lateral abdominal wall which extends to the subcutaneous lumbosacral region. There is also a small amount of inter and intramuscular hemorrhage/edema within the right lateral abdominal wall musculature. No definite retroperitoneal hemorrhage identified. A few colonic diverticula. No evidence for diverticulitis. No bowel wall thickening or obstruction. Normal appendix. The liver, gallbladder, spleen, adrenal glands and pancreas are within normal limits. No hydronephrosis. There are few small bilateral peripelvic renal cysts. A 6 mm hypodense lesion within the left kidney is technically too small to characterize but favors a cyst. No retroperitoneal lymphadenopathy. Normal bladder. IMPRESSION: 1. Right L2-L4 transverse process fractures. 2. A 13 x 12 x 5 cm hematoma within the deep subcutaneous fat of the right flank. 3. There is additional superficial subcutaneous hemorrhage within the right lateral abdominal wall which extends to the subcutaneous lumbosacral region as well as a small amount of inter and intramuscular hemorrhage/edema within the right lateral abdominal wall musculature. Electronically signed by: Richard De La Rosa M.D. 09/17/2018 12:05 PM Blood Pressure Blood Pressure Findings: Elevated blood pressure Blood Pressure Disposition: Referred to patients primary care provider [facility] Narrative This patient comes in as described above. He was placed in room A 11. He fell yesterday while making a deck and landed on his right flank. He fell about 4 feet. He has severe pain and a large bruise along the right flank into the right hip. It hurts significantly when he moves. He has no neurologic deficits. He has nothing to suggest cauda equina syndrome. He did not hit his head and there is no head neck or chest trauma. He has no abdominal pain. IV access established. He did not drive and was given IV morphine and IV Zofran and seems much more comfortable. Blood work was obtained and was unremarkable. He has no significant electrolyte or metabolic abnormalities and not significantly anemic. He did have a CAT scan which shows transverse process fractures of several lumbar vertebrae. He also has a large hematoma. He tried to get out of bed and had severe pain and spasm and I do not think he can go home at this point but needs to be admitted for pain management. Also monitoring of the hematoma in his hemoglobin. He is in agreement with this. I have consulted the hospitalist service and they saw him in the ER for these measures. Impression & Plan Lumbar transverse process fracture, Right flank hematoma Discharge Plan Visit Data *Final* Discharge Date/Time: 09/17/18 14:53 Chief Complaint: Hip Pain ED Provider: Sam Cheung Discharge Problem: Lumbar transverse process fracture, Right flank hematoma Patient Disposition: Admitted As Inpatient Condition: Good Discharge Instructions Interventions: ED Discharge Assessment Last Done: 09/17/18 14:53 Discharge Problem: Lumbar transverse process fracture Qualifiers: Encounter type: initial encounter Fracture type: closed Qualified Code(s): S32.009A - Unspecified fracture of unspecified lumbar vertebra, initial encounter for closed fracture Right flank hematoma Qualifiers: Encounter type: initial encounter Qualified Code(s): S30.1XXA - Contusion of abdominal wall, initial encounter The scribe's documentation has been prepared under my direction and personally reviewed by me in its entirety. I confirm that the note above accurately reflects all work, treatment, procedures, and medical decision making performed by me.
== END 2018-09-19 12:23 | disposition home or self-care (01) | DRG 552 ==
LOC: ED 09:51 → 3N 13:54